=== PATIENT | female | born 1990 | race Two or more races ===

== ENCOUNTER 2023-01-19 19:06 | Inpatient (IN) | payer MEDICAID, OTHER ==
[~2023-01-19] VITALS: Ht 162.6 cm; Wt 71.0 kg
[2023-01-19] MEDS ORDERED: PANTOPRAZOLE 40 MG/10 ML VIAL INJ IV ONE (20:00)
[2023-01-19] MEDS ORDERED: PROCHLORPERAZINE EDISYLATE 5 MG/ML 2ML VIAL IV ONE (20:00)
[2023-01-19] MEDS ORDERED: HYDROmorphone HCL 2 MG/ML VL/or syr IV ONE (20:00)
[2023-01-19] MEDS ORDERED: SODIUM CHLORIDE 0.9% 1,000 ML IVB ONE (20:00)
[2023-01-19 20:51] LABS: Basophils # (auto) 0 10 ^3/uL (0-0.2); Basophils % (auto) 0.2 % (0.0-2.0); Eosinophils # (auto) 0 10 ^3/uL (0-0.8); Hematocrit 33.2 % (36.0-46.0); Hemoglobin 10.9 g/dL (12.2-16.2); Lymphocytes # (auto) 0.7 10 ^3/uL (0.4-5.4); Mean Corpuscular Hemoglobin 28.1 pg (28.0-32.0); Mean Corpuscular Hgb Conc. 32.8 g/dL (32.0-36.0); Mean Corpuscular Volume 85.8 fL (80.0-100.0); Monocytes # (auto) 0.4 10 ^3/uL (0-1.3); Monocytes % (auto) 4.2 % (0.0-12.0); Neutrophils # (auto) 8.7 10 ^3/uL (1.6-8.6); Neutrophils % (auto) 88.6 % (37.0-80.0); Red Blood Cells 3.87 10^6/uL (4.0-5.20); Red Cell Distribution Width 14.7 % (11.8-14.3); White Blood Cell 9.9 10^3/uL (4.4-10.8)
[2023-01-19 21:13] LABS: Alanine Aminotransferase 10 U/L (7-40); Alkaline Phosphatase 75 U/L (46-116); Anion Gap 10.2 (5-15); BUN/Creatinine Ratio 8.8 (10.0-20.0); Blood Urea Nitrogen 10 mg/dL (9-23); Calcium 9.3 mg/dL (8.5-10.1); Carbon Dioxide 23.8 mmol/L (20-30); Chloride 106 mmol/L (98-107); Glucose 163 mg/dL (74-106); Lipase 34 U/L (12-53); Potassium 3.5 mmol/L (3.5-5.1); Sodium 140 mmol/L (136-145)
[2023-01-19 21:14] LABS: Albumin 4.2 g/dL (3.2-4.8); Aspartate Aminotransferase 13 U/L (13-40); Bilirubin, Total 0.5 mg/dL (0.2-1.0); Total Protein 7.6 g/dL (5.7-8.2)
[2023-01-19 22:04] LABS: Urine Bacteria MANY /hpf (None Seen); Urine Blood TRACE /uL (Negative); Urine Clarity CLOUDY (Clear); Urine Color Yellow (Yellow); Urine Hyaline Cast MOD /lpf (0 - 2); Urine Mucus FEW (None Seen); Urine Protein, UAD 1+ (Negative); Urine Specific Gravity 1.015 (1.001-1.035); Urine Urobilinogen Normal (Negative); Urine WBC 698 /hpf (0 - 5); Urine WBC Clumps PRESENT /hpf (None Seen)
[2023-01-19] MEDS ORDERED: cefTRIAXone 1GM/50ML D5W 50 ML IV ONE (22:15)
[2023-01-19] MEDS ORDERED: ACETAMINOPHEN 325 MG TAB PO PRN (22:45)
[2023-01-19] MEDS ORDERED: SODIUM CHLORIDE 0.9% 1,000 ML IV SCH (22:45)
[2023-01-19 23:03] LABS: Amphetamine Screen, Urine Neg (NEGATIVE); Barbiturate Scree,Urine Neg (NEGATIVE); Benzodiazephine Screen, Urine Neg (NEGATIVE)
[2023-01-19 23:04] LABS: Cannabinoid Screen, Urine Pos (NEGATIVE); Cocaine Screen, Urine Neg (NEGATIVE); Opiate Scree,Urine Neg (NEGATIVE); Phencyclidine Screen, Urine Neg (NEGATIVE)
[2023-01-20] MEDS: SODIUM CHLORIDE 0.9% 1,000 ML IV SCH ×5 (00:23→23:22)
[2023-01-20] MEDS: ACETAMINOPHEN 325 MG TAB PO PRN ×2 (02:45→23:11)
[2023-01-20] MEDS: HYDROmorphone HCL 2 MG/ML VL/or syr IV PRN ×4 (04:14→20:40)
[2023-01-20] MEDS ORDERED: HYDROmorphone HCL 2 MG/ML VL/or syr IV SCH (06:00)
[2023-01-20 07:10] LABS: Basophils # (auto) 0 10 ^3/uL (0-0.2); Basophils % (auto) 0.2 % (0.0-2.0); Eosinophils # (auto) 0 10 ^3/uL (0-0.8); Eosinophils % (auto) 0.2 % (0.0-7.0); Hematocrit 33.2 % (36.0-46.0); Hemoglobin 10.8 g/dL (12.2-16.2); Lymphocytes # (auto) 1.2 10 ^3/uL (0.4-5.4); Lymphocytes % (auto) 10.1 % (10.0-50.0); Mean Corpuscular Hgb Conc. 32.7 g/dL (32.0-36.0); Mean Corpuscular Volume 85.7 fL (80.0-100.0); Monocytes # (auto) 0.8 10 ^3/uL (0-1.3); Monocytes % (auto) 7.4 % (0.0-12.0); Neutrophils # (auto) 9.4 10 ^3/uL (1.6-8.6); Neutrophils % (auto) 82.1 % (37.0-80.0); Red Blood Cells 3.87 10^6/uL (4.0-5.20); Red Cell Distribution Width 14.6 % (11.8-14.3); White Blood Cell 11.4 10^3/uL (4.4-10.8)
[2023-01-20 07:29] LABS: Alanine Aminotransferase 11 U/L (7-40); Alkaline Phosphatase 76 U/L (46-116); Anion Gap 10.4 (5-15); BUN/Creatinine Ratio 8.2 (10.0-20.0); Blood Urea Nitrogen 8 mg/dL (9-23); Carbon Dioxide 21.6 mmol/L (20-30); Chloride 104 mmol/L (98-107); Glucose 197 mg/dL (74-106); Potassium 3.7 mmol/L (3.5-5.1); Sodium 136 mmol/L (136-145)
[2023-01-20 07:30] LABS: Albumin 4.1 g/dL (3.2-4.8); Aspartate Aminotransferase 9 U/L (13-40); Bilirubin, Total 0.5 mg/dL (0.2-1.0); Total Protein 7.5 g/dL (5.7-8.2)
[2023-01-20 07:35] VITALS: PULSE 111; RESP 16; O2SAT 96
[2023-01-20 10:37] LABS: Magnesium 1.7 mg/dL (1.6-2.6)
[2023-01-20] MEDS: PANTOPRAZOLE 40 MG/10 ML VIAL INJ IV SCH (10:55)
[2023-01-20] MEDS: METOCLOPRAMIDE HCL 5MG/ml INJ 2ml VIAL IV PRN (10:59)
[2023-01-20] MEDS ORDERED: DICYCLOMINE HCL 10 MG CAP PO ONE (18:30)
[2023-01-20] MEDS ORDERED: INSU100I2 SC (19:04)
[2023-01-20] MEDS ORDERED: INSLANTI SC (19:04)
[2023-01-20 19:21] VITALS: TEMP 36.6
[2023-01-20 22:03] VITALS: BP 158/100; PULSE 110; RESP 21; TEMP 98.3; O2SAT 100
[2023-01-20] MEDS: SUCRALFATE 1 GM/10 ML ORAL SUSP PO SCH (22:54)
[2023-01-20] MEDS: cefTRIAXone 1GM/50ML D5W 50 ML IV SCH (22:55)
[2023-01-21] MEDS: HYDROmorphone HCL 2 MG/ML VL/or syr IV PRN ×6 (00:58→23:32)
[2023-01-21] MEDS ORDERED: KETOROLAC TROMETH 30 MG/ML 1ML VIAL IV ONE (02:30)
[2023-01-21 05:09] VITALS: BP 138/75; PULSE 110; RESP 20; TEMP 97.7; O2SAT 98
[2023-01-21] MEDS: SUCRALFATE 1 GM/10 ML ORAL SUSP PO SCH ×4 (05:31→21:58)
[2023-01-21] MEDS: METOCLOPRAMIDE HCL 5MG/ml INJ 2ml VIAL IV PRN (06:17)
[2023-01-21 07:30] VITALS: TEMP 36.5
[2023-01-21] MEDS: PANTOPRAZOLE 40 MG/10 ML VIAL INJ IV SCH (08:50)
[2023-01-21] MEDS: SODIUM CHLORIDE 0.9% 1,000 ML IV SCH ×4 (08:56→23:08)
[2023-01-21 09:00] VITALS: BP 131/92; PULSE 119; RESP 22; TEMP 98.8; O2SAT 99
[2023-01-21] MEDS ORDERED: ALPRAZolam 0.5 MG TAB PO ONE (11:00)
[2023-01-21 13:00] VITALS: BP 137/94; PULSE 104; RESP 20; TEMP 98.8; O2SAT 97
[2023-01-21] MEDS ORDERED: ALPRAZolam 0.5 MG TAB PO SCH (14:00)
[2023-01-21 16:54] VITALS: BP 142/62; PULSE 105; RESP 20; TEMP 98.3; O2SAT 96
[2023-01-21] MEDS ORDERED: DEXTROSE (50%) 50ML SYRG IV PRN (17:45)
[2023-01-21] MEDS: cefTRIAXone 1GM/50ML D5W 50 ML IV SCH (21:58)
[2023-01-21] MEDS: ALPRAZolam 0.5 MG TAB PO SCH (21:59)
[2023-01-21 22:00] VITALS: BP 135/90; PULSE 100; RESP 18; TEMP 98.3; O2SAT 100
[2023-01-21] MEDS: InsuLIN REG 1unit/0.01ml Soln (100units/ml) SC SCH (22:00)
[2023-01-21] MEDS: ACCU-CHEK COMFORT CURVE STRIP VI SCH (22:08)
[2023-01-22 05:00] VITALS: BP 116/69; PULSE 113; RESP 20; TEMP 98.3; O2SAT 98
[2023-01-22] MEDS: ALPRAZolam 0.5 MG TAB PO SCH ×3 (05:46→20:28)
[2023-01-22] MEDS: SUCRALFATE 1 GM/10 ML ORAL SUSP PO SCH ×4 (05:46→20:27)
[2023-01-22] MEDS: ACCU-CHEK COMFORT CURVE STRIP VI SCH ×4 (05:57→21:26)
[2023-01-22] MEDS: InsuLIN REG 1unit/0.01ml Soln (100units/ml) SC SCH ×4 (05:57→21:28)
[2023-01-22] MEDS: SODIUM CHLORIDE 0.9% 1,000 ML IV SCH ×2 (06:05→19:22)
[2023-01-22 08:00] VITALS: BP 162/104; PULSE 63; RESP 20; TEMP 97.6; O2SAT 97
[2023-01-22] MEDS: ACETAMINOPHEN 325 MG TAB PO PRN (08:14)
[2023-01-22] MEDS: HYDROmorphone HCL 2 MG/ML VL/or syr IV PRN ×4 (08:20→21:23)
[2023-01-22] MEDS: PANTOPRAZOLE 40 MG/10 ML VIAL INJ IV SCH (09:30)
[2023-01-22] MEDS: METOCLOPRAMIDE HCL 5MG/ml INJ 2ml VIAL IV PRN (11:21)
[2023-01-22 13:00] VITALS: BP 137/81; PULSE 119; RESP 22; TEMP 98.6; O2SAT 97
[2023-01-22 16:47] VITALS: BP 128/81; PULSE 102; RESP 16; TEMP 98.7; O2SAT 98
[2023-01-22] MEDS: cefTRIAXone 1GM/50ML D5W 50 ML IV SCH (20:15)
[2023-01-22 22:40] VITALS: BP 153/93; PULSE 110; RESP 18; TEMP 98.3; O2SAT 98
[2023-01-23] MEDS: HYDROmorphone HCL 2 MG/ML VL/or syr IV PRN ×5 (02:49→22:02)
[2023-01-23] MEDS: SUCRALFATE 1 GM/10 ML ORAL SUSP PO SCH ×4 (03:00→21:29)
[2023-01-23] MEDS: ALPRAZolam 0.5 MG TAB PO SCH ×3 (03:00→21:30)
[2023-01-23] MEDS: SODIUM CHLORIDE 0.9% 1,000 ML IV SCH ×3 (05:19→18:11)
[2023-01-23 05:35] VITALS: BP 125/84; PULSE 115; RESP 20; TEMP 97.9; O2SAT 98
[2023-01-23] MEDS: ACCU-CHEK COMFORT CURVE STRIP VI SCH ×4 (05:56→21:30)
[2023-01-23] MEDS: InsuLIN REG 1unit/0.01ml Soln (100units/ml) SC SCH ×4 (05:56→21:49)
[2023-01-23 06:31] LABS: INR 0.98 (0.9-1.15); Prothrombin Time 10.3 sec (9.3-11.8)
[2023-01-23] MEDS: METOCLOPRAMIDE HCL 5MG/ml INJ 2ml VIAL IV PRN ×2 (08:47→17:59)
[2023-01-23] MEDS: PANTOPRAZOLE 40 MG/10 ML VIAL INJ IV SCH ×3 (08:47→21:30)
[2023-01-23 09:00] VITALS: BP 112/64; PULSE 106; RESP 20; TEMP 97.9; O2SAT 96
[2023-01-23] MEDS ORDERED: fentaNYL CITRATE 100 MCG/2 ML VL ONE (11:40)
[2023-01-23] MEDS ORDERED: MIDAZOLAM HCL 2MG/2ML 2ml VIAL (1mg/ml) ONE (11:41)
[2023-01-23 12:01] VITALS: O2SAT 100
[2023-01-23] MEDS ORDERED: PROPOFOL 10 MG/ML 20 ML IV ONE (12:35)
[2023-01-23] MEDS: ONDANSETRON HCL 4 MG/2 ML VIAL IV PRN (13:40)
[2023-01-23 17:00] VITALS: BP 145/92; PULSE 112; RESP 16; TEMP 98.3; O2SAT 96
[2023-01-23 18:41] LABS: Urine Bacteria FEW /hpf (None Seen); Urine Blood Negative /uL (Negative); Urine Clarity HAZY (Clear); Urine Color Colorless (Yellow); Urine Mucus FEW (None Seen); Urine Protein, UAD TRACE (Negative); Urine Urobilinogen Normal (Negative); Urine WBC 215 /hpf (0 - 5); Urine WBC Clumps PRESENT /hpf (None Seen)
[2023-01-23 20:00] VITALS: PULSE 111; RESP 18
[2023-01-23] MEDS: cefTRIAXone 1GM/50ML D5W 50 ML IV SCH (21:30)
[2023-01-23 22:00] VITALS: BP 128/83; PULSE 111; RESP 16; TEMP 98.7; O2SAT 96
[2023-01-24] MEDS: METOCLOPRAMIDE HCL 5MG/ml INJ 2ml VIAL IV PRN ×2 (02:04→21:20)
[2023-01-24] MEDS: HYDROmorphone HCL 2 MG/ML VL/or syr IV PRN ×3 (02:05→11:14)
[2023-01-24] MEDS: SODIUM CHLORIDE 0.9% 1,000 ML IV SCH ×3 (04:40→21:21)
[2023-01-24 05:00] VITALS: BP 122/89; PULSE 107; RESP 16; TEMP 98.2; O2SAT 98
[2023-01-24] MEDS: ONDANSETRON HCL 4 MG/2 ML VIAL IV PRN (06:08)
[2023-01-24] MEDS: ALPRAZolam 0.5 MG TAB PO SCH ×3 (06:08→21:20)
[2023-01-24] MEDS: ACCU-CHEK COMFORT CURVE STRIP VI SCH ×4 (06:08→21:21)
[2023-01-24] MEDS: SUCRALFATE 1 GM/10 ML ORAL SUSP PO SCH ×4 (06:08→21:20)
[2023-01-24] MEDS: InsuLIN REG 1unit/0.01ml Soln (100units/ml) SC SCH ×4 (06:30→21:48)
[2023-01-24 07:26] LABS: Erythrocyte Sedimentation Rate 49 mm/hr (0-20)
[2023-01-24 08:00] VITALS: BP 116/87; PULSE 101; RESP 15; TEMP 98.4; O2SAT 97
[2023-01-24] MEDS: PANTOPRAZOLE 40 MG/10 ML VIAL INJ IV SCH ×2 (09:38→21:20)
[2023-01-24 13:00] VITALS: BP 142/92; PULSE 114; RESP 20; TEMP 98.3; O2SAT 100
[2023-01-24 17:00] VITALS: BP 147/102; PULSE 107; RESP 15; TEMP 98.5; O2SAT 100
[2023-01-24 20:00] VITALS: BP 135/93; PULSE 103; RESP 16; TEMP 97.6
[2023-01-24] MEDS: cefTRIAXone 1GM/50ML D5W 50 ML IV SCH (21:21)
[2023-01-24] MEDS: ACETAMINOPHEN 325 MG TAB PO PRN (21:21)
[2023-01-24 22:00] VITALS: BP 135/93; PULSE 103; RESP 16; TEMP 97.6; O2SAT 94
[2023-01-25 05:00] VITALS: BP 140/100; PULSE 108; RESP 16; TEMP 97.6; O2SAT 96
[2023-01-25] MEDS: SODIUM CHLORIDE 0.9% 1,000 ML IV SCH ×3 (05:40→22:20)
[2023-01-25] MEDS: ACCU-CHEK COMFORT CURVE STRIP VI SCH ×4 (06:22→23:30)
[2023-01-25] MEDS: SUCRALFATE 1 GM/10 ML ORAL SUSP PO SCH ×4 (06:22→22:44)
[2023-01-25] MEDS: ALPRAZolam 0.5 MG TAB PO SCH ×3 (06:22→22:44)
[2023-01-25] MEDS: ACETAMINOPHEN 325 MG TAB PO PRN ×2 (06:42→14:31)
[2023-01-25] MEDS: InsuLIN REG 1unit/0.01ml Soln (100units/ml) SC SCH ×4 (06:45→22:40)
[2023-01-25 08:00] VITALS: PULSE 102; RESP 18; O2SAT 97
[2023-01-25 09:00] VITALS: BP 123/89; PULSE 67; RESP 20; TEMP 98.9; O2SAT 96
[2023-01-25] MEDS: PANTOPRAZOLE 40 MG/10 ML VIAL INJ IV SCH ×2 (09:27→22:44)
[2023-01-25] MEDS ORDERED: SUCR1TAB22 OR (11:31)
[2023-01-25] MEDS ORDERED: PANT40T PO (11:31)
[2023-01-25] MEDS ORDERED: ZOFR4T PO (11:31)
[2023-01-25] MEDS ORDERED: METO-281 PO (11:31)
[2023-01-25] MEDS ORDERED: ERTAPENEM SOD INJ 1 GM in SODIUM CHL 0.9% 50 ML IV ONE (11:45)
[2023-01-25 13:00] VITALS: BP 139/86; PULSE 107; RESP 20; TEMP 98.4; O2SAT 94
[2023-01-25 20:00] VITALS: BP 136/83; PULSE 98; RESP 16; RESP 20; TEMP 98.3
[2023-01-25] MEDS: MEROPENEM 1GM IVPB 100 ML IV SCH (23:24)
[2023-01-26] MEDS ORDERED: diphenhdrAMINE HCL 50 MG/1 ML VL IV ONE (02:45)
[2023-01-26] MEDS ORDERED: ACETAMINOPHEN 325 MG TAB PO ONE (02:45)
[2023-01-26 05:04] VITALS: BP 105/69; PULSE 96; RESP 19; TEMP 97.7; O2SAT 98
[2023-01-26] MEDS: SODIUM CHLORIDE 0.9% 1,000 ML IV SCH ×2 (06:40→10:49)
[2023-01-26] MEDS: SUCRALFATE 1 GM/10 ML ORAL SUSP PO SCH ×3 (06:44→17:06)
[2023-01-26] MEDS: ALPRAZolam 0.5 MG TAB PO SCH ×2 (06:45→15:07)
[2023-01-26] MEDS: InsuLIN REG 1unit/0.01ml Soln (100units/ml) SC SCH ×3 (06:53→17:12)
[2023-01-26 08:00] VITALS: BP 118/79; PULSE 59; RESP 20; TEMP 98.6; O2SAT 97
[2023-01-26] MEDS: ACCU-CHEK COMFORT CURVE STRIP VI SCH ×3 (08:00→17:06)
[2023-01-26] MEDS: MEROPENEM 1GM IVPB 100 ML IV SCH (08:06)
[2023-01-26 08:30] VITALS: PULSE 117; RESP 22; O2SAT 98
[2023-01-26] MEDS ORDERED: ERTAPENEM SOD INJ 1 GM in SODIUM CHL 0.9% 50 ML IV SCH (10:00)
[2023-01-26] MEDS: PANTOPRAZOLE 40 MG/10 ML VIAL INJ IV SCH (10:49)
[2023-01-26] MEDS: ACETAMINOPHEN 325 MG TAB PO PRN (11:10)
[2023-01-26] MEDS ORDERED: diphenhdrAMINE HCL 50 MG/1 ML VL IV PRN (11:30)
[2023-01-26] MEDS ORDERED: methylPREDNISolone SOD SUCC 40 MG/ML VL IV PRN (11:30)
[2023-01-26] MEDS ORDERED: AMIKACIN 1,000 MG in D5W 5% 100 ML IV ONE (12:00)
[2023-01-26 12:14] LABS: Basophils # (auto) 0 10 ^3/uL (0-0.2); Basophils % (auto) 0.5 % (0.0-2.0); Eosinophils # (auto) 0.2 10 ^3/uL (0-0.8); Eosinophils % (auto) 3.1 % (0.0-7.0); Hematocrit 35.1 % (36.0-46.0); Hemoglobin 11.6 g/dL (12.2-16.2); Lymphocytes # (auto) 1.1 10 ^3/uL (0.4-5.4); Mean Corpuscular Hemoglobin 27.9 pg (28.0-32.0); Mean Corpuscular Hgb Conc. 33.1 g/dL (32.0-36.0); Mean Corpuscular Volume 84.2 fL (80.0-100.0); Monocytes # (auto) 0.4 10 ^3/uL (0-1.3); Monocytes % (auto) 6.2 % (0.0-12.0); Neutrophils % (auto) 70.2 % (37.0-80.0); Nucleated Red Blood Cells % 0.1 %; Red Blood Cells 4.17 10^6/uL (4.0-5.20); Red Cell Distribution Width 14.9 % (11.8-14.3); White Blood Cell 5.7 10^3/uL (4.4-10.8)
[2023-01-26 12:30] LABS: INR 1.03 (0.9-1.15); Prothrombin Time 10.8 sec (9.3-11.8)
[2023-01-26 12:41] LABS: Albumin 3.8 g/dL (3.2-4.8); Alkaline Phosphatase 74 U/L (46-116); Anion Gap 8.5 (5-15); Aspartate Aminotransferase 9 U/L (13-40); Calcium 9.1 mg/dL (8.5-10.1); Carbon Dioxide 24.5 mmol/L (20-30); Chloride 102 mmol/L (98-107); Glucose 242 mg/dL (74-106); Potassium 3.2 mmol/L (3.5-5.1); Sodium 135 mmol/L (136-145)
[2023-01-26 12:42] LABS: Bilirubin, Total 0.3 mg/dL (0.2-1.0); Total Protein 6.9 g/dL (5.7-8.2)
[2023-01-26 12:47] LABS: Alanine Aminotransferase 9 U/L (7-40); BUN/Creatinine Ratio 5.2 (10.0-20.0); Blood Urea Nitrogen < 5 mg/dL (9-23)
[2023-01-26 13:00] VITALS: BP 143/95; PULSE 99; RESP 22; TEMP 97.5; O2SAT 98
[2023-01-26] MEDS: POTASSIUM CHL 20MEQ/100ML 100 ML IV SCH ×2 (15:07→17:00)
[2023-01-26] MEDS ORDERED: DICYCLOMINE HCL 10 MG CAP PO PRN (15:30)
[2023-01-26 17:00] VITALS: BP 118/84; PULSE 107; RESP 20; TEMP 98.7; O2SAT 96
[2023-01-26] MEDS ORDERED: KETOROLAC TROMETH 30 MG/ML 1ML VIAL IV PRN (17:00)
[2023-01-27] MEDS ORDERED: AMIKACIN 1,000 MG in D5W 5% 100 ML IV SCH (10:00)
== END 2023-01-26 18:57 | disposition left against medical advice (07) | DRG 720 ==
LOC: ER 19:06 → OVERFLOW 22:35 → WEST WING 01-20 18:21
PROVIDERS: ADMIT Nurse Practitioner Family; ATTEND Family Medicine
PROC: 0DB98ZX Excision of Duodenum, Via Natural or Artificial Opening Endoscopic, Diagnostic (ICD-10-PCS; 2023-01-23)
PROC: 0DB68ZX Excision of Stomach, Via Natural or Artificial Opening Endoscopic, Diagnostic (ICD-10-PCS; 2023-01-23)
PROC: 0DB38ZX Excision of Lower Esophagus, Via Natural or Artificial Opening Endoscopic, Diagnostic (ICD-10-PCS; 2023-01-23)
PROC: 05HC33Z Insertion of Infusion Device into Left Basilic Vein, Percutaneous Approach (ICD-10-PCS; principal; 2023-01-26)
DX: A41.51 Sepsis due to Escherichia coli [E. coli] (principal); K31.3 Pylorospasm, not elsewhere classified; K29.00 Acute gastritis without bleeding; K31.84 Gastroparesis; N39.0 Urinary tract infection, site not specified; R73.9 Hyperglycemia, unspecified; K44.9 Diaphragmatic hernia without obstruction or gangrene; K29.70 Gastritis, unspecified, without bleeding; Z53.29 Procedure and treatment not carried out because of patient's decision for other reasons; B96.20 Unspecified Escherichia coli [E. coli] as the cause of diseases classified elsewhere; F12.10 Cannabis abuse, uncomplicated; K21.9 Gastro-esophageal reflux disease without esophagitis; Z16.12 Extended spectrum beta lactamase (ESBL) resistance; Z83.3 Family history of diabetes mellitus; Z90.49 Acquired absence of other specified parts of digestive tract; Z87.440 Personal history of urinary (tract) infections
CPT/HCPCS: 36415; 74176; 80053; 80307; 81001; 81025; 82728; 82962; 83036; 83690; 83735; 84100; 84443; 84484; 85025; 85610; 85652; 85730; 86038; 86141; 86850; 86900; 86901; 87040; 87081; 87086; 87088; 87186; 96361; 96374; 96375; C9113; G0378; J0696; J1815; J1885; J2185; J2250; J2405; J2704; J3480; J7060

== ENCOUNTER 2024-07-03 16:54 | Inpatient (IN) | payer MEDICAID ==
[~2024-07-03] VITALS: Ht 162.6 cm; Wt 72.7 kg
[~2024-07-03 16:54] MED LIST: INSLANTI SC; INSU100I2 SC; METO-281 PO; PANT40T PO; SUCR1TAB31 OR; ZOFR4T PO
--- NOTE | 2024-07-03 17:47 | ED.PDOC ---
GI ASSESSMENT HPI Comments 34y F who presents to the ED for chief complaint of abdominal pain. Pt states she has been having epigastric abdominal pain for the past 3 days. Pt states the pain is 10/10, achy in nature, constant, radiating diffuse across her abdomen, with no associated exacerbating or relieving factors. pt has associated nausea, vomiting and diarrhea but otherwise denies fever, cough, chills, dysuria, hematuria, or hematemesis. Pt states she is type 1 diabetic and accu check in ED is 292. Pt in the ED, is noted to be in distress and is unable to sit still. Pt otherwise denies any other symptoms at this time. Chief Complaint: Abdominal Pain Time Seen by MD: 17:43 Primary Care Provider: "IERUTH" Reviewed Notes: Nurses Notes, Medications Allergies: Coded Allergies: Meropenem (Verified Allergy, Unknown, hives, 01/26/23) Home Meds Active Scripts Sucralfate (CARAFATE) 1 Gm Tab, 1 GM OR QID, #120 TAB Prov:OSKAR CAPELLAN MD 01/25/23 Pantoprazole Sodium Sesquihydr (Pantoprazole Sodium) 40 Mg Tab, 40 MG PO DAILY, #30 TAB Prov:OSKAR CAPELLAN MD 01/25/23 Metoclopramide Hcl (Reglan) 10 Mg Tab, 10 MG PO DAILY, #30 TAB Prov:OSKAR CAPELLAN MD 01/25/23 Ondansetron Odt 4MG Tab (ZOFRAN PO) 4 Mg Tb, 4 MG PO Q6HR PRN, #30 TAB ODT TAB-DISSOLVE IN MOUTH, THEN SWALLOW Prov:OSKAR CAPELLAN MD 01/25/23 Reported Medications Insulin Lispro (Human) (Humalog) 100 Unit/Ml Inj, 100 UNIT SC for Diabetes, INJ 01/20/23 Insulin Glargine (Lantus) 100 Unit/Ml Inj, 100 UNIT SC for Diabetes, INJ 01/20/23 Information Source: Patient Mode of Arrival: Ambulatory Brought in by: self Timing: Days Duration: Since onset Prehospital treatment: None Quality: Aching Vomitus: Soft Stool: Loose Severity: Moderate Recent: None Recent Hx of: None Pain Location: Diffuse, Epigastric Modifying Factors: Nothing Associated sign and symptoms: Nausea, Vomiting, Diarrhea Past Medical History PAST MEDICAL HISTORY: DM, UTI'S Past Medical History (Other): gastroparesis Surgical History: Cholecystectomy SENIOR FACILITIES MANAGER History: Denies all SENIOR FACILITIES MANAGER Hx Family History Family History: Family hx of DM Social History Smoker: Non-Smoker Alcohol: Denies ETOH Use Drugs: Denies Drug Use Lives In: Home Constitutional: denies: chills, diaphoresis, fatigue, fever, malaise, sweats, weakness, others EENTM: denies: blurred vision, double vision, ear bleeding, ear discharge, ear drainage, ear pain, ear ringing, eye pain, eye redness, hearing loss, mouth pain, mouth swelling, nasal discharge, nose bleeding, nose congestion, nose pain, photophobia, tearing, throat pain, throat swelling, voice changes, others Respiratory: denies: cough, hemoptysis, orthopnea, SOB at rest, shortness of breath, SOB with excertion, stridor, wheezing, others Cardiovascular: denies: chest pain, dizzy spells, diaphoresis, Dyspnea on exertion, edema, irregular heart beat, left arm pain, lightheadedness, palpitations, PND, syncope, others Gastrointestinal: reports: abdominal pain, diarrhea, nausea, vomiting; denies: abdomen distended, blood streaked bowels, constipated, dysphagia, difficulty swallowing, hematemesis, melena, poor appetite, poor fluid intake, rectal bleeding, rectal pain, others Genitourinary: denies: abnormal vagina bleeding, burning, dyspareunia, dysuria, flank pain, frequency, hematuria, incontinence, pain, , vagina discharge, urgency, others Neurological: denies: dizziness, fainting, headache, left sided numbness, left sided weakness, numbness, paresthesia, pre-existing deficit, right sided numbness, right sided weakness, seizure, speech problems, tingling, tremors, weakness, others Musculoskeletal: denies: back pain, gout, joint pain, joint swelling, muscle pain, muscle stiffness, neck pain, others Integumetry: denies: bruises, change in color, change in hair/nails, dryness, laceration, lesions, lumps, rash, wounds, others Allergic/Immunocompromised: denies: Difficulty Healing, Frequent Infections, Hives, Itching, others Hematologic/Lymphatic: denies: anemia, blood clots, easy bleeding, easy bruising, swollen glands, others Endocrine: denies: excessive hunger, excessive sweating, excessive thirst, excessive urination, flushing, intolerance to cold, intolerance to heat, unexplained weight gain, unexplained weight loss, others Psychiatric: denies: anxiety, bipolar disorder, depression, hopeless, panic disorder, schizophrenia, sleepless, suicidal, others All Other Systems: Reviewed and Negative Physical Exam General Appearance: Moderate Distress, Other (Extreme anxiety) HEENT: Normal ENT Inspection, Pharynx Normal, TMs Normal Neck: Full Range of Motion, Non-Tender, Normal, Normal Inspection Respiratory: Chest Non-Tender, Lungs Clear, No Accessory Muscle Use, No Respiratory Distress, Normal Breath Sounds Cardiovascular: No Edema, No JVD, No Murmur, No Gallop, Normal Peripheral Pulses, Regular Rate/Rhythm Breast Exam: Deferred Gastrointestinal: Epigastric, No Organomegaly, No Pulsatile Mass, Normal Bowel Sounds, Soft, Tenderness Genitalia: Deferred Pelvic: Deferred Rectal: Deferred Extremities: No calf tenderness, Normal capillary refill, No pedal edema Musculoskeletal : Apperance: Normal Neurologic: Alert, flow worker II-XII nml as Tested, Motor Weakness, Normal Affect, Normal Mood, No Sensory Deficits Cerebellar Function: Normal Reflexes: Normal Skin: Dry, Normal Color, Warm Lymphatic: No Adenopathy Was a procedure done? Was a procedure done?: No GI differential Dx Differential Diagnosis: Gastritis/PUD, Gastroenteritis, Pancreatitis, UTI, Dehydration, Diabetes/ DKA, Electrolyte Imbalance Other Differential Diagnosis diabetic gastroparesis X-Ray, Labs, Meds, VS Vital Signs Date Time Temp Pulse Resp B/P (MAP) Pulse Ox O2 Delivery O2 Flow Rate FiO2 07/03/24 18:28 95 20 156/84 07/03/24 18:17 95 20 96 Room Air* 0 21 07/03/24 18:17 95 20 156/84 (108) 96 07/03/24 17:33 98.4 91 25 113/93 (100) 96 Lab Test 07/03/24 17:54 Range/Units White Blood Count 9.3 4.4-10.8 10^3/uL Red Blood Count 4.05 4.0-5.20 10^6/uL Hemoglobin 11.5 L 12.2-16.2 g/dL Hematocrit 34.9 L 36.0-46.0 % Mean Corpuscular Volume 86.2 80.0-100.0 fL Mean Corpuscular Hemoglobin 28.4 28.0-32.0 pg Mean Corpuscular Hemoglobin Concent 32.9 32.0-36.0 g/dL Red Cell Distribution Width 15.2 H 11.8-14.3 % Platelet Count 218 140-450 10^3/uL Mean Platelet Volume 10.7 6.9-10.8 fL Neutrophils (%) (Auto) 90.6 H 37.0-80.0 % Lymphocytes (%) (Auto) 5.8 L 10.0-50.0 % Monocytes (%) (Auto) 3.2 0.0-12.0 % Eosinophils (%) (Auto) 0.1 0.0-7.0 % Basophils (%) (Auto) 0.3 0.0-2.0 % Neutrophils # (Auto) 8.5 1.6-8.6 10 ^3/uL Lymphocytes # (Auto) 0.5 0.4-5.4 10 ^3/uL Monocytes # (Auto) 0.3 0-1.3 10 ^3/uL Eosinophils # (Auto) 0 0-0.8 10 ^3/uL Basophils # (Auto) 0 0-0.2 10 ^3/uL Nucleated Red Blood Cells 0.0 % Sodium Level 139 136-145 mmol/L Potassium Level 4.2 3.5-5.1 mmol/L Chloride Level 105 98-107 mmol/L Carbon Dioxide Level 21 20-31 mmol/L Anion Gap 13 5-15 Blood Urea Nitrogen 26 H 9-23 mg/dL Creatinine 1.41 H 0.550-1.02 mg/dL Glomerular Filtration Rate Calc 50 >90 mL/min BUN/Creatinine Ratio 18.4 10.0-20.0 Serum Glucose 322 H 74-106 mg/dL Calcium Level 10.2 8.7-10.4 mg/dL Total Bilirubin 0.5 0.2-1.0 mg/dL Aspartate Amino Transferase (AST) 25 13-40 U/L Alanine Aminotransferase (ALT) 41 H 7-40 U/L Alkaline Phosphatase 83 46-116 U/L Total Protein 7.8 5.7-8.2 g/dL Albumin 4.9 H 3.2-4.8 g/dL Lipase 34 12-53 U/L Beta-Hydroxybutyric Acid 2.429 H < 0.4 mmol/L Current Medications Medications (Trade) Dose Ordered Sig/Pio Route Start Time Stop Time Status Last Admin Sodium Chloride 1,000 ml @ 1,000 mls/hr Q1H ONCE IVB 07/03/24 17:15 07/03/24 18:14 DC 07/03/24 18:16 Morphine Sulfate 4 mg ONCE ONCE IV 07/03/24 17:15 07/03/24 17:16 DC 07/03/24 18:28 Prochlorperazine Edisylate (Compazine Inj) 10 mg ONCE ONCE IV 07/03/24 17:15 07/03/24 17:16 DC 07/03/24 18:29 Pantoprazole Sodium (Protonix) 40 mg ONCE ONCE IV 07/03/24 17:15 07/03/24 17:16 DC 07/03/24 18:27 The patient had an IV Hep-Lock established. The patient was given a 1 L bolus of normal saline The patient was given morphine 4 mg IV push for the pain The patient was given Compazine 10 mg IV push The patient was given Protonix 40 mg IV push The beta hydroxybutyric acid is 2.43 which is elevated The liver enzymes are within normal limits. The CBC is within normal limits The urine test is pending The patient was being admitted at this time. Images Reviewed?: Images reviewed and evaluated by me Time of 1ST Reevaluation: 18:15 Reevaluation 1ST: Unchanged Time of 2ND Reevaluation: 20:43 Reevaluation 2ND: Unchanged Patient Education/Counseling: Diagnosis, Treatment, Prognosis Family Education/Counseling: Prognosis, No Family Present Additional Information - I reviewed the following notes from patient's past medical encounters: - The following tests were ordered, and results were reviewed by me: (Labs, X- Ray, EKG): cbc, cmp, lipase, ua, urine , drug screen acetone level - Additional information was gathered from interviewing the following independent Historian: (Family, Other Providers, EMT): none - I reviewed and agreed with the following test results read by other provider: none - I discussed treatments and results with medical personnel and: (consultants, family): none Departure 1 Departure Time of Disposition: 20:42 Impression: Primary Impression: Gastroparesis Additional Impressions: Intractable abdominal pain Intractable vomiting Disposition: ADMITTED INPATIENT Admit to: Med Surg Condition: Fair Critical Care Note Critical Care Time?: No Stability Stability form required: Yes Unstable for transfer: ED Physician Assesment (Clinical assesment) Heart Score Heart Score: Heart Score Response (Comments) Value History N/A 0 EKG N/A 0 Age N/A 0 Risk Factors N/A 0 Troponin N/A 0 Total 0 I personally scribed for HARESH WU MD ([email or web address]) on 07/03/24 at 17:47. Electronically submitted by Salinas Renteria ([facility]). HARESH WU MD Jul 03, 2024 17:47
[2024-07-03] MEDS: SODIUM CHLORIDE 0.9% 1,000 ML IVB ONE (18:16)
[2024-07-03 18:17] VITALS: PULSE 95; RESP 20; O2SAT 96
[2024-07-03 18:21] LABS: Basophils # (auto) 0 10 ^3/uL (0-0.2); Basophils % (auto) 0.3 % (0.0-2.0); Eosinophils # (auto) 0 10 ^3/uL (0-0.8); Eosinophils % (auto) 0.1 % (0.0-7.0); Hematocrit 34.9 % (36.0-46.0); Hemoglobin 11.5 g/dL (12.2-16.2); Lymphocytes # (auto) 0.5 10 ^3/uL (0.4-5.4); Lymphocytes % (auto) 5.8 % (10.0-50.0); Mean Corpuscular Hemoglobin 28.4 pg (28.0-32.0); Mean Corpuscular Hgb Conc. 32.9 g/dL (32.0-36.0); Mean Corpuscular Volume 86.2 fL (80.0-100.0); Monocytes # (auto) 0.3 10 ^3/uL (0-1.3); Monocytes % (auto) 3.2 % (0.0-12.0); Neutrophils # (auto) 8.5 10 ^3/uL (1.6-8.6); Neutrophils % (auto) 90.6 % (37.0-80.0); Platelet Count (auto) 218 10^3/uL (140-450); Red Blood Cells 4.05 10^6/uL (4.0-5.20); Red Cell Distribution Width 15.2 % (11.8-14.3); White Blood Cell 9.3 10^3/uL (4.4-10.8)
[2024-07-03] MEDS: PANTOPRAZOLE 40 MG/10 ML VIAL INJ IV ONE (18:27)
[2024-07-03] MEDS: MORPHINE SULFATE 4 MG/ML SYR/VIAL IV ONE (18:28)
[2024-07-03 18:29] LABS: Alkaline Phosphatase 83 U/L (46-116); Anion Gap 13 (5-15); Aspartate Aminotransferase 25 U/L (13-40); BUN/Creatinine Ratio 18.4 (10.0-20.0); Calcium 10.2 mg/dL (8.7-10.4); Carbon Dioxide 21 mmol/L (20-31); Chloride 105 mmol/L (98-107); Lipase 34 U/L (12-53); Potassium 4.2 mmol/L (3.5-5.1); Sodium 139 mmol/L (136-145)
[2024-07-03] MEDS: PROCHLORPERAZINE EDISYLATE 5 MG/ML 2ML VIAL IV ONE (18:29)
[2024-07-03 18:30] LABS: Bilirubin, Total 0.5 mg/dL (0.2-1.0); Total Protein 7.8 g/dL (5.7-8.2)
[2024-07-03 18:43] LABS: Alanine Aminotransferase 41 U/L (7-40); Albumin 4.9 g/dL (3.2-4.8); Blood Urea Nitrogen 26 mg/dL (9-23); Glucose 322 mg/dL (74-106)
[2024-07-03] MEDS: SODIUM CHLORIDE 0.9% 1,000 ML IV ONE (20:30)
[2024-07-03] MEDS ORDERED: DEXTROSE (50%) 50ML SYRG IV PRN ×2 (20:45→21:00)
--- NOTE | 2024-07-03 20:54 | DVHHPRES ---
History of Present Illness Resident Creating Document: DELL GOULD RESIDENT Reason for Visit: ABDOMINAL PAIN History of Present Illness A 34y with past medical history diabetes type 1 and gastroparesis who came to the ED for epigastric abdominal pain. Patient stated that she is having the pain for about 2 weeks but it got worse today the reason that she came, patient also states nausea and vomit. Patient states that this pain happened before and she believes that is related to her gastroparesis. Home medication Lantus 15 units lispro 8 units Endocrine: Diabetes Past Surgical History: Cholecystectomy Family History: None Smoke: No ALCOHOL: none Drugs: None Lives: with Family Review of Systems Constitutional: No: Fever, Chills, Sweats, Weakness, Malaise, Other Eyes: No: Pain, Vision change, Conjunctivae inflammation, Eyelid inflammation, Other, Redness ENT: No: Ear pain, Ear discharge, Nose pain, Nose discharge, Nose congestion, Mouth pain, Mouth swelling, Throat pain, Throat swelling, Other Respiratory: No: Cough, Dry, Shortness of breath, SOB with excertion, Wheezing, Hemoptysis, Pleuritic Pain, Sputum, Wheezing, Other Cardiovascular: No: Chest Pain, Palpitations, Orthopnea, Paroxysmal Noc. Dyspnea, Edema, Lt Headedness, Other Gastrointestinal: No: Nausea, Vomiting, Abdominal Pain, Diarrhea, Constipation, Melena, Hematochezia, Other Genitourinary: No Dysuria, No Frequency, No Incontinence, No Hematuria, No Retention, No Other Musculoskeletal: No: other, neck pain, shoulder pain, arm pain, back pain, hand pain, leg pain, foot pain Skin: No: Rash, Lesions, Jaundice, Bruising, Other Allergies: Coded Allergies: Meropenem (Verified Allergy, Unknown, hives, 01/26/23) Medications Current Medications Medications Dose Ordered Sig/Pio Route Start Time Stop Time Status Last Admin Dose Admin Diagnostic Test (Pha) 1 strip Q6HR 07/04/24 00:00 UNV Insulin Human Regular Q6HR SC 07/04/24 00:00 UNV Dextrose 50 ml UD PRN IV 07/03/24 20:45 UNV Exam Vital Signs Vital Signs Date Time Temp Pulse Resp B/P (MAP) Pulse Ox O2 Delivery O2 Flow Rate FiO2 07/03/24 18:28 95 20 156/84 07/03/24 18:17 96 Room Air* 0 21 2/12/25 17:33 98.4 General Appearance: Alert, Oriented X3, Cooperative, mild distress HEENT: Atraumatic, PERRLA, EOMI, Other (Dry mucous ) Respiratory: Clear to auscultation Cardiovascular: Regular rate, Normal S1, Normal S2 Abdominal: Normal bowel sounds, Other (Tender in the epigastric area) Extremities: No clubbing, No cyanosis, No edema Skin: No rashes, No breakdown, No significant lesion Neuro: Normal gait, Normal speech, Strength at 5/5 X4 ext Psych/Mental Status: Mental status NL, Mood NL, Other Labs/Xrays Labs Test 07/03/24 17:54 Range/Units White Blood Count 9.3 4.4-10.8 10^3/uL Red Blood Count 4.05 4.0-5.20 10^6/uL Hemoglobin 11.5 L 12.2-16.2 g/dL Hematocrit 34.9 L 36.0-46.0 % Mean Corpuscular Volume 86.2 80.0-100.0 fL Mean Corpuscular Hemoglobin 28.4 28.0-32.0 pg Mean Corpuscular Hemoglobin Concent 32.9 32.0-36.0 g/dL Red Cell Distribution Width 15.2 H 11.8-14.3 % Platelet Count 218 140-450 10^3/uL Mean Platelet Volume 10.7 6.9-10.8 fL Neutrophils (%) (Auto) 90.6 H 37.0-80.0 % Lymphocytes (%) (Auto) 5.8 L 10.0-50.0 % Monocytes (%) (Auto) 3.2 0.0-12.0 % Eosinophils (%) (Auto) 0.1 0.0-7.0 % Basophils (%) (Auto) 0.3 0.0-2.0 % Neutrophils # (Auto) 8.5 1.6-8.6 10 ^3/uL Lymphocytes # (Auto) 0.5 0.4-5.4 10 ^3/uL Monocytes # (Auto) 0.3 0-1.3 10 ^3/uL Eosinophils # (Auto) 0 0-0.8 10 ^3/uL Basophils # (Auto) 0 0-0.2 10 ^3/uL Nucleated Red Blood Cells 0.0 % Sodium Level 139 136-145 mmol/L Potassium Level 4.2 3.5-5.1 mmol/L Chloride Level 105 98-107 mmol/L Carbon Dioxide Level 21 20-31 mmol/L Anion Gap 13 5-15 Blood Urea Nitrogen 26 H 9-23 mg/dL Creatinine 1.41 H 0.550-1.02 mg/dL Glomerular Filtration Rate Calc 50 >90 mL/min BUN/Creatinine Ratio 18.4 10.0-20.0 Serum Glucose 322 H 74-106 mg/dL Calcium Level 10.2 8.7-10.4 mg/dL Total Bilirubin 0.5 0.2-1.0 mg/dL Aspartate Amino Transferase (AST) 25 13-40 U/L Alanine Aminotransferase (ALT) 41 H 7-40 U/L Alkaline Phosphatase 83 46-116 U/L Total Protein 7.8 5.7-8.2 g/dL Albumin 4.9 H 3.2-4.8 g/dL Lipase 34 12-53 U/L Beta-Hydroxybutyric Acid 2.429 H < 0.4 mmol/L Assessment/Plan Assessment/Plan #Intractable abdominal pain #DM type 1 #Gastroparesis Admit to med surg NS bolus 1 L continue 100 cc/hour Protonix 40 b.i.d. Metoclopramide Lantus 15 units Moderate Insulin sliding scale CT abdomen without contrast and chest x-ray ordered Pending UDS A1c test TSH urinalysis, urine culture Case discussed with Dr. Enriquez Time spent of care 23 minutes Plan discussed with: Patient, Other (rn) My Orders Orders - DELL GOULD RESIDENT Procedure Category Date Status Time Sodium Chloride 0.9% PHA 07/03/24 Logged 20:30 Sodium Chloride 0.9% PHA 07/03/24 Logged 20:30 Metoclopramide PHA 07/03/24 Logged Injection (Reglan 20:30 Pantoprazole PHA 07/03/24 Logged (Protonix) 22:00 Abdomen Complete US 07/03/24 Logged Sonogram 20:27 Admit ADMIT 07/03/24 Transmitted 20:33 Ondansetron Hcl PHA 07/03/24 Logged (Zofran) 20:45 Urine Bacterial URBAN 07/03/24 Logged Culture 20:35 Thyroid Stimulating LAB 07/03/24 Logged Hormone 20:35 Hemoglobin A1c LAB 07/03/24 Logged 20:35 Glucose Blood PHA 07/04/24 Logged (Accu-Chek Comfort 00:00 Insulin R (Human) PHA 07/04/24 Logged (Insulin R) 00:00 Dextrose 50% Syringe PHA 07/03/24 Logged 20:45 Date of Service: Jul 03, 2024 Billing Provider: CRISS ENRIQUEZ MD Common Visit Codes: [id number] INP/OBS CARE (HIGH) DELL GOULD RESIDENT Jul 03, 2024 20:54 CRISS ENRIQUEZ MD Jul 05, 2024 00:30
--- NOTE | 2024-07-03 21:04 | DVH ---
CHEST RADIOGRAPH Indication: dyspnea Technique: Single frontal view of the chest was obtained COMPARISON: None FINDINGS: Lines and Tubes: None Lungs: Mild congestion Pleura: No effusion. No pneumothorax. Cardiomediastinal contours: Unremarkable Bones: Unremarkable IMPRESSION: Mild congestion.
--- NOTE | 2024-07-03 21:52 | DVH ---
CLINICAL HISTORY: abdominal pain TECHNIQUE: CT of the abdomen and pelvis was performed without intravenous contrast. This exam was per formed according to our departmental dose optimization program. Up-to-date CT equipment and radiation dose reduction techniques are utilized as appropriate. COMPARISON: CT CT AB PEL WO CON-NO ORAL OR IV on DOS: 01/22/23, report from CT abdomen and pelvis dated 07/06/2022 FINDINGS: Lower Thorax: Linear scarring in the right middle lobe. Lung bases otherwise clear. Normal-sized hea rt. Liver and Biliary system: Prior cholecystectomy, otherwise unremarkable. Spleen: Unremarkable. Adrenal Glands and Kidneys: Unremarkable. Pancreas and Retroperitoneum: Grossly normal pancreas. Mildly prominent retroperitoneal lymph nodes. Aorta and Major Vessels: Aortoiliac vessels are normal caliber containing trace calcified atheroscler otic plaque. Bowel, Mesentery and Peritoneal space: Small and large bowel loops are normal in caliber. Normal appe ndix. No free air or fluid collection. Pelvis: Grossly normal ovaries. No pelvic lymphadenopathy. Urinary bladder is mildly distended. A pro minent bulge in the posterior left uterine body unchanged likely a fibroid. Abdominal wall and Osseous Structures: Linear areas of scarring overlying the bilateral gluteus maxim us muscles. Small fat containing umbilical hernia. No destructive osseous lesion. IMPRESSION: 1. No noncontrast evidence of acute abnormality. 2. Prominent bulge in the posterior left uterine body is unchanged and likely a fibroid.
[2024-07-03 23:31] LABS: Urine Bacteria None Seen /hpf (None Seen)
[2024-07-03 23:58] LABS: Opiate Scree,Urine Neg (NEGATIVE)
[2024-07-03 23:59] LABS: Amphetamine Screen, Urine Neg (NEGATIVE); Barbiturate Scree,Urine Neg (NEGATIVE); Benzodiazephine Screen, Urine Neg (NEGATIVE); Cannabinoid Screen, Urine Pos (NEGATIVE); Cocaine Screen, Urine Neg (NEGATIVE); Phencyclidine Screen, Urine Neg (NEGATIVE)
[2024-07-04] MEDS ORDERED: InsuLIN REG 1unit/0.01ml Soln (100units/ml) SC SCH
[2024-07-04] MEDS ORDERED: ACCU-CHEK COMFORT CURVE STRIP VI SCH
[2024-07-04 00:16] LABS: Urine Blood Negative /uL (Negative); Urine Clarity Clear (Clear); Urine Color Colorless (Yellow); Urine Protein, UAD Negative (Negative); Urine Specific Gravity 1.017 (1.001-1.035); Urine Squamous Epithelial Cell FEW /hpf (<5); Urine Urobilinogen Normal (Negative); Urine WBC < 1 /HPF (0-5); Urine pH 6.5 (5.0-9.0)
[2024-07-04] MEDS: INSULIN LANTUS (GLARGINE) 1 /0.01ml (100units/ml) SC SCH ×3 (01:31→22:52)
[2024-07-04] MEDS: ACCU-CHEK COMFORT CURVE STRIP VI SCH (01:31)
[2024-07-04] MEDS: ONDANSETRON HCL 4 MG/2 ML VIAL IV ONE (01:37)
[2024-07-04] MEDS: PANTOPRAZOLE 40 MG/10 ML VIAL INJ IV ONE (01:37)
[2024-07-04] MEDS: MORPHINE SULFATE INJ 2 MG/ml SYRG IV PRN (01:37)
[2024-07-04] MEDS: InsuLIN REG 1unit/0.01ml Soln (100units/ml) SC SCH (01:38)
[2024-07-04] MEDS: SODIUM CHLORIDE 0.9% 2,000 ML IV ONE (01:39)
[2024-07-04] MEDS: METOCLOPRAMIDE HCL 5MG/ml INJ 2ml VIAL IV ONE ×2 (03:54→13:38)
[2024-07-04] MEDS: METOCLOPRAMIDE HCL 5MG/ml INJ 2ml VIAL IV SCH (06:00)
[2024-07-04] MEDS: D5W/SOD CHLO 0.9% 1,000 ML IV SCH (08:15)
[2024-07-04 08:43] LABS: Basophils # (auto) 0 10 ^3/uL (0-0.2); Basophils % (auto) 0.3 % (0.0-2.0); Eosinophils # (auto) 0 10 ^3/uL (0-0.8); Hematocrit 34.1 % (36.0-46.0); Hemoglobin 11.2 g/dL (12.2-16.2); Lymphocytes # (auto) 0.8 10 ^3/uL (0.4-5.4); Lymphocytes % (auto) 8.6 % (10.0-50.0); Mean Corpuscular Hemoglobin 28.4 pg (28.0-32.0); Mean Corpuscular Hgb Conc. 32.7 g/dL (32.0-36.0); Mean Corpuscular Volume 86.6 fL (80.0-100.0); Monocytes # (auto) 0.7 10 ^3/uL (0-1.3); Monocytes % (auto) 7.2 % (0.0-12.0); Neutrophils % (auto) 83.9 % (37.0-80.0); Nucleated Red Blood Cells % 0.1 %; Platelet Count (auto) 230 10^3/uL (140-450); Red Blood Cells 3.94 10^6/uL (4.0-5.20); Red Cell Distribution Width 14.8 % (11.8-14.3); White Blood Cell 9.5 10^3/uL (4.4-10.8)
[2024-07-04 09:03] LABS: Anion Gap 13 (5-15); Calcium 10.1 mg/dL (8.7-10.4); Carbon Dioxide 22 mmol/L (20-31); Chloride 105 mmol/L (98-107); Potassium 4.2 mmol/L (3.5-5.1); Sodium 140 mmol/L (136-145)
[2024-07-04 09:09] LABS: BUN/Creatinine Ratio 17.8 (10.0-20.0); Blood Urea Nitrogen 23 mg/dL (9-23)
[2024-07-04 09:10] LABS: Magnesium 2.1 mg/dL (1.6-2.6)
[2024-07-04 09:11] LABS: Glucose 135 mg/dL (74-106)
[2024-07-04] MEDS: FAMOTIDINE (10MG/ML) 2ML VL IV SCH (09:40)
[2024-07-04] MEDS: SODIUM CHLORIDE 0.9% 1,000 ML IV ONE (09:57)
[2024-07-04] MEDS: ONDANSETRON HCL 4 MG/2 ML VIAL IV PRN (10:00)
[2024-07-04] MEDS: MORPHINE SULFATE INJ 2 MG/ml SYRG IM ONE (10:44)
[2024-07-04 11:00] VITALS: PULSE 95; RESP 20; O2SAT 99
[2024-07-04] MEDS: METOPROLOL TARTRATE 1MG/1ML-5ML VIAL IV ONE (12:45)
[2024-07-04] MEDS: metroNIDAZOLE 500MG/100ML 100 ML IV ONE (13:40)
[2024-07-04] MEDS: metroNIDAZOLE 500MG/100ML 100 ML IV SCH (14:00)
[2024-07-04] MEDS: LORazepam 2MG/ML-1ML VIAL IV SCH (14:26)
[2024-07-04 17:22] VITALS: BP 137/89; PULSE 125; RESP 20; TEMP 97.9; O2SAT 96
--- NOTE | 2024-07-04 17:29 | DVHPNRES ---
Progress Note Date Seen: Jul 04, 2024 Resident Creating Document: LIA PALAFOX RESIDENT Medical Necessity Reason Pt with a Central, PICC or Fol: No Subjective Review of Systems Patient is 34 years old female with past medical history of type 1 diabetes mellitus gastroparesis came with a complaint of abdominal pain and nausea and vomiting. As per patient patient has been having abdominal pain started 2 weeks before, cramping in nature, constant, 10/10 at the beginning now 8/10 which was getting worse. Patient also endorsed nausea and several times vomiting with clear color, no blood. Also endorsed loose motion or several times, no blood. Patient also endorsed having marijuana lately in a get to the republican with Martha which worsened her abdominal pain. Denied any fever, acute joint pain or swelling, dysarthria or change in vision, dysuria. Significant initial lab workup revealed hemoglobin 11.5, BUN 26, serum creatinine 1.41, glucose 332, HGB A1c 9.2, ALT 41, beta hydroxybutyrate 2.42. Urinalysis negative for UTI. Urinalysis revealed ketone body 3+. test negative. UDS tested positive for cannabinoids. CXR no no consolidation noted. CT abdomen- Prominent bulge in the posterior left uterine body is unchanged and likely a fibroid. PMH-diabetes mellitus type 1, gastroparesis PSH- cholecystectomy Allergy- meropenem. Personal History/ Social History- lives with family, smokes marijuana. Patient was seen today at the bedside. Cardiovascular- deny acute chest pain or shortness of breath or cough or palpitation Respiratory denies cough or short of breath or wheezing Musculoskeletal-denies acute joint swelling or tenderness or redness Neurological- denies acute dysarthria, dysphagia, change in vision Psychiatry- denies depression or SI or HI Skin- denies acute rash or purpura Patient was seen today for clinical evaluation. Labs and chart reviewed. Patient still complaining of abdominal pain 8/10, crampy in nature. Patient is on pain meds. Ordered normal saline at 125 mL/hour. Ordered ceftriaxone and and metronidazole. Objective vital signs Vital Sign Date Time Temp Pulse Resp B/P (MAP) Pulse Ox O2 Delivery O2 Flow Rate FiO2 07/04/24 14:12 92 18 164/107 07/04/24 12:01 98.2 99 98.2 07/04/24 11:00 Room Air* 0 21 Total Intake and Output 07/03/24 07/03/24 07/04/24 15:00 23:00 07:00 Intake Total 1000 ml 2000 ml Balance 1000 ml 2000 ml medications Current Medications Medications Dose Ordered Sig/Pio Route Start Time Stop Time Status Last Admin Dose Admin Diagnostic Test (Pha) 1 strip Q6HR 07/04/24 00:00 07/04/24 12:00 1 STRIP Insulin Human Regular Q6HR SC 07/04/24 00:00 07/04/24 14:35 3 UNITS Dextrose 50 ml UD PRN IV 07/03/24 21:00 Metoclopramide HCl 10 mg Q8HR IV 07/04/24 06:00 07/04/24 06:00 10 MG Morphine Sulfate 2 mg Q2HPRN PRN IV 07/04/24 01:00 07/04/24 13:42 2 MG Insulin Glargine 15 units HS SC 07/04/24 22:00 Famotidine 20 mg Q12HR IV 07/04/24 10:00 07/04/24 09:40 20 MG Ondansetron HCl 4 mg Q6HPRN PRN IV 07/04/24 10:00 07/04/24 10:00 4 MG Lorazepam 2 mg Q6HR IV 07/04/24 12:00 07/04/24 14:26 2 MG Ceftriaxone Sodium 50 ml @ 100 mls/hr DAILY@09 IV 07/05/24 09:00 Metronidazole 100 ml @ 100 mls/hr Q8HR IV 07/04/24 14:00 Sodium Chloride 1,000 ml @ 125 mls/hr Q8H IV 07/04/24 12:45 Examination General examination- awake, alert, oriented HEENT- PEERLA, no acute nasal discharge Cardiovascular- S1-S2 audible, rate and rhythm regular, no murmur Respiratory- CTAB, no wheeze or rhonchi Gastrointestinal-abdominal tenderness+, bowel sound+. Nondistended Musculoskeletal-no acute joint swelling or tenderness or redness# Lower extremity- no leg edema Neurological- cranial nerves intact, no acute dysarthria or dysphagia Psychiatry- denies depression or SI or HI Skin- no acute rash or purpura laboratory and microbiology Laboratory Tests 07/04/24 08:34 Test 07/04/24 08:34 Range/Units Serum Glucose 135 H 74-106 mg/dL Problem List/Assessment/Plan Problem List/Assessment/Plan Acute gastroenteritis Acute exertional gastroparesis Suspected Cannabinoids induced nausea and vomiting Uncontrolled diabetes mellitus Dehydration SHADIA likely due to VMN Suspected anxiety Fibroid uterus UDS tested positive for cannabinoids. CXR no no consolidation noted. CT abdomen- Prominent bulge in the posterior left uterine body is unchanged and likely a fibroid. Continue ceftriaxone 1 g IV daily Continue metronidazole 500 mg IV q.8h Insulin sliding scale as prescribed Insulin Lantus 15 units subcutaneously at HS Lorazepam 2 mg IV Q 6 hours Continue pain medication as prescribed Continue normal saline at rate of 125 mL/hour Monitor vitals Maintain intake output chart Outpatient follow up with the Gynecology and Obstetrics for fibroid uterus Goals of care/advance care planning; FULL CODE; discussed with the patient >15 minutes PUD prophylaxis: Famotidine DVT prophylaxis: Patient ambulating Plan discussed with Dr. Chatman , nursing staff, patient Total time spent on patient evaluation, chart review, assessment and plan, discussion discussion >31 minutes Plan discussed with: Patient Plan discussed with: Patient, Other (RN) My Orders My Orders Orders - LIA PALAFOX Procedure Category Date Status Time Famotidine Injection PHA 07/04/24 In Process (Pepcid Injection) 10:00 Ondansetron Hcl PHA 07/04/24 In Process (Zofran) 10:00 Communication Order ORDERS 07/04/24 Transmitted 10:18 Lorazepam 2mg/Ml Inj PHA 07/04/24 In Process (Ativan Inj) 12:00 Ceftriaxone 1gm/50ml PHA 07/05/24 In Process D5w (Rocephin) 09:00 Metronidazole PHA 07/04/24 In Process 500mg/100ml (Flagyl 14:00 Sodium Chloride 0.9% PHA 07/04/24 In Process 12:45 Date of Service: Jul 04, 2024 Billing Provider: RUDY FULLER MD Common Visit Codes: [id number] INP/OBS CARE(HIGH) LIA PALAFOX Jul 04, 2024 17:29 RUDY FULLER MD Jul 08, 2024 00:10
[2024-07-04] MEDS: cefTRIAXone 1GM/50ML D5W 50 ML IV ONE (18:42)
[2024-07-04] MEDS: SODIUM CHLORIDE 0.9% 1,000 ML IV SCH (18:42)
[2024-07-04 20:00] VITALS: PULSE 100; PULSE 92; RESP 18; O2SAT 99
[2024-07-04 21:00] VITALS: BP 147/96; PULSE 100; RESP 16; TEMP 98.8; O2SAT 99
[2024-07-05] VITALS (8 sets, daily range): BP systolic 116–164; BP diastolic 58–96; PULSE 52–120; RESP 17–19; TEMP 97.3–98.9; O2SAT 95–100
[2024-07-05 07:14] LABS: Basophils # (auto) 0 10 ^3/uL (0-0.2); Basophils % (auto) 0.1 % (0.0-2.0); Eosinophils # (auto) 0 10 ^3/uL (0-0.8); Hematocrit 36.7 % (36.0-46.0); Lymphocytes # (auto) 0.5 10 ^3/uL (0.4-5.4); Lymphocytes % (auto) 3.5 % (10.0-50.0); Mean Corpuscular Hemoglobin 28.3 pg (28.0-32.0); Mean Corpuscular Hgb Conc. 32.7 g/dL (32.0-36.0); Mean Corpuscular Volume 86.6 fL (80.0-100.0); Monocytes # (auto) 0.6 10 ^3/uL (0-1.3); Monocytes % (auto) 4.7 % (0.0-12.0); Neutrophils # (auto) 11.9 10 ^3/uL (1.6-8.6); Neutrophils % (auto) 91.7 % (37.0-80.0); Platelet Count (auto) 220 10^3/uL (140-450); Red Blood Cells 4.23 10^6/uL (4.0-5.20); Red Cell Distribution Width 15.1 % (11.8-14.3); White Blood Cell 12.9 10^3/uL (4.4-10.8)
[2024-07-05 07:15] LABS: Alanine Aminotransferase 40 U/L (7-40); Albumin 4.4 g/dL (3.2-4.8); Alkaline Phosphatase 91 U/L (46-116); Anion Gap 15 (5-15); Aspartate Aminotransferase 27 U/L (13-40); BUN/Creatinine Ratio 13.3 (10.0-20.0); Bilirubin, Total 0.5 mg/dL (0.2-1.0); Blood Urea Nitrogen 14 mg/dL (9-23); Calcium 9.8 mg/dL (8.7-10.4); Carbon Dioxide 19 mmol/L (20-31); Chloride 103 mmol/L (98-107); Glucose 197 mg/dL (74-106); Magnesium 1.9 mg/dL (1.6-2.6); Potassium 3.8 mmol/L (3.5-5.1); Sodium 137 mmol/L (136-145); Total Protein 7.5 g/dL (5.7-8.2)
[2024-07-05] MEDS: cefTRIAXone 1GM/50ML D5W 50 ML IV SCH (09:56)
--- NOTE | 2024-07-05 16:20 | DVHPNRES ---
Progress Note Date Seen: Jul 05, 2024 Resident Creating Document: LIA PALAFOX RESIDENT Medical Necessity Reason Pt with a Central, PICC or Fol: No Subjective Review of Systems Patient is 34 years old female with past medical history of type 1 diabetes mellitus gastroparesis came with a complaint of abdominal pain and nausea and vomiting. As per patient patient has been having abdominal pain started 2 weeks before, cramping in nature, constant, 10/10 at the beginning now 8/10 which was getting worse. Patient also endorsed nausea and several times vomiting with clear color, no blood. Also endorsed loose motion or several times, no blood. Patient also endorsed having marijuana lately in a get to the libertarian with Martha which worsened her abdominal pain. Denied any fever, acute joint pain or swelling, dysarthria or change in vision, dysuria. Significant initial lab workup revealed hemoglobin 11.5, BUN 26, serum creatinine 1.41, glucose 332, HGB A1c 9.2, ALT 41, beta hydroxybutyrate 2.42. Urinalysis negative for UTI. Urinalysis revealed ketone body 3+. test negative. UDS tested positive for cannabinoids. CXR no no consolidation noted. CT abdomen- Prominent bulge in the posterior left uterine body is unchanged and likely a fibroid. PMH-diabetes mellitus type 1, gastroparesis PSH- cholecystectomy Allergy- meropenem. Personal History/ Social History- lives with family, smokes marijuana. Patient was seen today at the bedside. Cardiovascular- deny acute chest pain or shortness of breath or cough or palpitation Respiratory denies cough or short of breath or wheezing Musculoskeletal-denies acute joint swelling or tenderness or redness Neurological- denies acute dysarthria, dysphagia, change in vision Psychiatry- denies depression or SI or HI Skin- denies acute rash or purpura Patient was seen today for clinical evaluation. Labs and chart reviewed. Patient reported nausea and vomiting has improved a lot but patient is still having abdominal pain. Abdominal tenderness positive. No fever noted overnight. Ordered clear liquid diet. Discontinued lorazepam and IV fluid. Objective vital signs Vital Sign Date Time Temp Pulse Resp B/P (MAP) Pulse Ox O2 Delivery O2 Flow Rate FiO2 07/05/24 15:30 94 18 155/97 07/05/24 13:00 97.3 99 97.3 07/05/24 08:00 Room Air* 0 21 Total Intake and Output 07/04/24 07/04/24 07/05/24 15:00 23:00 07:00 Intake Total 555 ml 650 ml 1300 ml Balance 555 ml 650 ml 1300 ml medications Current Medications Medications Dose Ordered Sig/Pio Route Start Time Stop Time Status Last Admin Dose Admin Diagnostic Test (Pha) 1 strip Q6HR 07/04/24 00:00 07/05/24 12:04 1 STRIP Insulin Human Regular Q6HR SC 07/04/24 00:00 07/05/24 12:10 3 UNITS Dextrose 50 ml UD PRN IV 07/03/24 21:00 Metoclopramide HCl 10 mg Q8HR IV 07/04/24 06:00 07/05/24 14:48 10 MG Morphine Sulfate 2 mg Q2HPRN PRN IV 07/04/24 01:00 07/05/24 15:00 2 MG Insulin Glargine 15 units HS SC 07/04/24 22:00 07/04/24 22:52 15 UNITS Famotidine 20 mg Q12HR IV 07/04/24 10:00 07/05/24 09:56 20 MG Ondansetron HCl 4 mg Q6HPRN PRN IV 07/04/24 10:00 07/05/24 12:04 4 MG Ceftriaxone Sodium 50 ml @ 100 mls/hr DAILY@09 IV 07/05/24 09:00 07/05/24 09:56 100 MLS/HR Metronidazole 100 ml @ 100 mls/hr Q8HR IV 07/04/24 14:00 07/05/24 14:47 100 MLS/HR Examination General examination- awake, alert, oriented HEENT- PEERLA, no acute nasal discharge Cardiovascular- S1-S2 audible, rate and rhythm regular, no murmur Respiratory- CTAB, no wheeze or rhonchi Gastrointestinal-abdominal tenderness+, bowel sound+. Nondistended Musculoskeletal-no acute joint swelling or tenderness or redness# Lower extremity- no leg edema Neurological- cranial nerves intact, no acute dysarthria or dysphagia Psychiatry- denies depression or SI or HI Skin- no acute rash or purpura laboratory and microbiology Laboratory Tests 07/05/24 05:21 Test 07/05/24 05:21 Range/Units Serum Glucose 197 H 74-106 mg/dL Microbiology Date/Time Source Procedure Growth Status 07/03/24 23:30 Voided Urine Urine Culture - Preliminary Resulted Problem List/Assessment/Plan Problem List/Assessment/Plan Acute gastroenteritis Acute exertional gastroparesis Suspected Cannabinoids induced intractable nausea and vomiting Suspected lactic acidosis likely due to dehydration Uncontrolled diabetes mellitus Dehydration SHADIA likely due to VMN Suspected anxiety Fibroid uterus UDS tested positive for cannabinoids. CXR no no consolidation noted. CT abdomen- Prominent bulge in the posterior left uterine body is unchanged and likely a fibroid. Continue ceftriaxone 1 g IV daily Continue metronidazole 500 mg IV q.8h Insulin sliding scale as prescribed Insulin Lantus 15 units subcutaneously at HS Continue pain medication as prescribed Monitor vitals Maintain intake output chart Outpatient follow up with the Gynecology and Obstetrics for fibroid uterus Discontinued IV fluid Discontinue lorazepam Goals of care/advance care planning; FULL CODE; discussed with the patient >15 minutes PUD prophylaxis: Famotidine DVT prophylaxis: Patient ambulating Plan discussed with Dr. Chatman , nursing staff, patient Total time spent on patient evaluation, chart review, assessment and plan, discussion discussion >31 minutes Plan discussed with: Patient Plan discussed with: Patient, Other (RN) My Orders My Orders Orders - LIA PALAFOX Procedure Category Date Status Time Initiate Vte SEYMOUR 07/05/24 In Process Prophylaxis 00:17 Clear Liq Diet DIET 07/05/24 Transmitted Lunch Date of Service: Jul 05, 2024 Billing Provider: RUDY FULLER MD Common Visit Codes: [id number] INP/OBS CARE(HIGH) LIA PALAFOX Jul 05, 2024 16:20 RUDY FULLER MD Jul 08, 2024 00:16
[2024-07-06] VITALS (7 sets, daily range): BP systolic 107–170; BP diastolic 64–96; PULSE 95–108; RESP 17–19; TEMP 97.6–98.7; O2SAT 96–99
[2024-07-06] MEDS: SODIUM CHLORIDE 0.9% 1,000 ML IV ONE (10:15)
[2024-07-06 11:05] LABS: Basophils # (auto) 0 10 ^3/uL (0-0.2); Basophils % (auto) 0.1 % (0.0-2.0); Eosinophils # (auto) 0 10 ^3/uL (0-0.8); Hematocrit 36.8 % (36.0-46.0); Lymphocytes # (auto) 0.7 10 ^3/uL (0.4-5.4); Lymphocytes % (auto) 6.6 % (10.0-50.0); Mean Corpuscular Hemoglobin 28.3 pg (28.0-32.0); Mean Corpuscular Hgb Conc. 32.6 g/dL (32.0-36.0); Mean Corpuscular Volume 86.9 fL (80.0-100.0); Monocytes # (auto) 0.5 10 ^3/uL (0-1.3); Monocytes % (auto) 4.3 % (0.0-12.0); Neutrophils # (auto) 9.8 10 ^3/uL (1.6-8.6); Platelet Count (auto) 256 10^3/uL (140-450); Red Blood Cells 4.23 10^6/uL (4.0-5.20); Red Cell Distribution Width 14.8 % (11.8-14.3)
[2024-07-06 11:13] LABS: Chloride 99 mmol/L (98-107); Potassium 3.6 mmol/L (3.5-5.1)
[2024-07-06 11:14] LABS: Anion Gap 16 (5-15)
[2024-07-06 11:15] LABS: Calcium 10.1 mg/dL (8.7-10.4)
[2024-07-06 11:19] LABS: BUN/Creatinine Ratio 10.1 (10.0-20.0); Blood Urea Nitrogen 11 mg/dL (9-23)
[2024-07-06 11:24] LABS: Carbon Dioxide 16 mmol/L (20-31); Glucose 150 mg/dL (74-106); Sodium 131 mmol/L (136-145)
--- NOTE | 2024-07-06 13:20 | DVHDSRES ---
Discharge Summary Date of Admission Resident Creating Document: LIA PALAFOX Jul 03, 2024 at 20:33 Date of Discharge: Jul 06, 2024 Admitting Diagnosis Suspected acute gastroenteritis Labs/Diagnostic Data: Laboratory Results Test 07/06/24 12:14 07/06/24 10:32 07/05/24 05:21 07/04/24 19:15 POC Glucose 166 mg/dl (70-106) White Blood Count 11.0 10^3/uL (4.4-10.8) Red Blood Count 4.23 10^6/uL (4.0-5.20) Hemoglobin 12.0 g/dL (12.2-16.2) Hematocrit 36.8 % (36.0-46.0) Mean Corpuscular Volume 86.9 fL (80.0-100.0) Mean Corpuscular Hemoglobin 28.3 pg (28.0-32.0) Mean Corpuscular Hemoglobin Concent 32.6 g/dL (32.0-36.0) Red Cell Distribution Width 14.8 % (11.8-14.3) Platelet Count 256 10^3/uL (140-450) Mean Platelet Volume 10.1 fL (6.9-10.8) Neutrophils (%) (Auto) 89.0 % (37.0-80.0) Lymphocytes (%) (Auto) 6.6 % (10.0-50.0) Monocytes (%) (Auto) 4.3 % (0.0-12.0) Eosinophils (%) (Auto) 0.0 % (0.0-7.0) Basophils (%) (Auto) 0.1 % (0.0-2.0) Neutrophils # (Auto) 9.8 10 ^3/uL (1.6-8.6) Lymphocytes # (Auto) 0.7 10 ^3/uL (0.4-5.4) Monocytes # (Auto) 0.5 10 ^3/uL (0-1.3) Eosinophils # (Auto) 0 10 ^3/uL (0-0.8) Basophils # (Auto) 0 10 ^3/uL (0-0.2) Nucleated Red Blood Cells 0.0 % Sodium Level 131 mmol/L (136-145) Potassium Level 3.6 mmol/L (3.5-5.1) Chloride Level 99 mmol/L (98-107) Carbon Dioxide Level 16 mmol/L (20-31) Anion Gap 16 (5-15) Blood Urea Nitrogen 11 mg/dL (9-23) Creatinine 1.09 mg/dL (0.550-1.02) Glomerular Filtration Rate Calc 68 mL/min (>90) BUN/Creatinine Ratio 10.1 (10.0-20.0) Serum Glucose 150 mg/dL (74-106) Calcium Level 10.1 mg/dL (8.7-10.4) Magnesium Level 1.9 mg/dL (1.6-2.6) Total Bilirubin 0.5 mg/dL (0.2-1.0) Aspartate Amino Transferase (AST) 27 U/L (13-40) Alanine Aminotransferase (ALT) 40 U/L (7-40) Alkaline Phosphatase 91 U/L (46-116) Total Protein 7.5 g/dL (5.7-8.2) Albumin 4.4 g/dL (3.2-4.8) Lactic Acid Level 1.1 mmol/L (0.4-2.0) Test 07/03/24 23:00 07/03/24 17:54 Urine Color Colorless (Yellow) Urine Clarity Clear (Clear) Urine pH 6.5 (5.0-9.0) Urine Specific [place] 1.017 (1.001-1.035) Urine Protein Negative (Negative) Urine Ketones 3+ (Negative) Urine Blood Negative /uL (Negative) Urine Nitrite Negative (Negative) Urine Bilirubin Negative (Negative) Urine Urobilinogen Normal mg/dL (Negative) Urine Leukocyte Esterase Negative /uL (Negative) Urine RBC 1 /hpf (0 - 4) Urine Microscopic WBC < 1 /HPF (0-5) Urine Squamous Epithelial Cells Few /hpf (<5) Urine Bacteria None seen /hpf (None Seen) Urine Glucose 4+ mg/dL (Normal) Urine Test Negative (Negative) Urine Opiates Screen Neg (NEGATIVE) Urine Fentanyl Screen Neg (NEGATIVE) Urine Barbiturates Screen Neg (NEGATIVE) Urine Phencyclidine Screen Neg (NEGATIVE) Urine Amphetamines Screen Neg (NEGATIVE) Urine Benzodiazepines Screen Neg (NEGATIVE) Urine Cocaine Screen Neg (NEGATIVE) Urine Cannabinoids Screen Pos (NEGATIVE) Hemoglobin A1c 9.2 % A1C (<5.7) Lipase 34 U/L (12-53) Beta-Hydroxybutyric Acid 2.429 mmol/L (< 0.4) Thyroid Stimulating Hormone (TSH) 0.93 uIU/mL (0.55-4.78) Other Laboratory Tests 07/06/24 10:32 Brief Hx & Hospital Course: HPI-Patient is 34 years old female with past medical history of type 1 diabetes mellitus gastroparesis came with a complaint of abdominal pain and nausea and vomiting. As per patient patient has been having abdominal pain started 2 weeks before, cramping in nature, constant, 10/10 at the beginning now 8/10 which was getting worse. Patient also endorsed nausea and several times vomiting with clear color, no blood. Also endorsed loose motion or several times, no blood. Patient also endorsed having marijuana lately in a get to the [employer] party with Brownie which worsened her abdominal pain. Denied any fever, acute joint pain or swelling, dysarthria or change in vision, dysuria. Significant initial lab workup revealed hemoglobin 11.5, BUN 26, serum creatinine 1.41, glucose 332, HGB A1c 9.2, ALT 41, beta hydroxybutyrate 2.42. Urinalysis negative for UTI. Urinalysis revealed ketone body 3+. test negative. UDS tested positive for cannabinoids. CXR no no consolidation noted. CT abdomen- Prominent bulge in the posterior left uterine body is unchanged and likely a fibroid. Hospital course-patient came to the hospital for intractable abdominal pain. Patient was admitted to the hospital due to acute gastroenteritis and suspected cannabinoids induced intractable nausea and vomiting. Patient was treated conservatively. Patient's symptoms gradually got better. Patient was tolerating liquid diet well. Patient was advised to continue liquid diet for 1- 2 weeks. Patient was discharged with Zofran 4 mg every 6 hours as needed. Patient was advised to follow up with the primary care physician in 1 week. Patient's meds were sent to the pharmacy electronically. Patient was hemodynamically stable on discharge. Patient was counseled about the effect of substance abuse on health. Patient has verbalized understanding. Diagnosis Acute gastroenteritis likely viral Acute exertional gastroparesis Suspected Cannabinoids induced intractable nausea and vomiting Suspected lactic acidosis likely due to dehydration Uncontrolled diabetes mellitus Dehydration SHADIA likely due to VMN Suspected anxiety Anxiety induced Tachycardia Psychogenic Hyperventilation and tachypnea Fibroid uterus Discharge plan- Continuing liquid diet for 1-2 week [id number] pain management Please resume insulin lispro and Lantus as used to take Zofran 4 mg p.o. every 6 hours as needed Patient was advised to follow up with the primary care physician in 1 week Patient is counseled about the effect of substance abuse on health Patient was counseled about the importance of med compliance Condition at Discharge: Stable Final Diagnosis/Problems List Acute gastroenteritis likely viral Acute exertional gastroparesis Suspected Cannabinoids induced intractable nausea and vomiting Suspected lactic acidosis likely due to dehydration Uncontrolled diabetes mellitus Dehydration SHADIA likely due to VMN-resolved anxiety Anxiety induced Tachycardia Psychogenic Hyperventilation and tachypnea Fibroid uterus Discharge Disposition: Home Discharge Instruct/Medications Follow Up/Referral: Please resume insulin lispro and Lantus as used to take Zofran 4 mg p.o. every 6 hours as needed Patient was advised to follow up with the primary care physician in 1 week Patient is counseled about the effect of substance abuse on health Patient was counseled about the importance of med compliance Medications: [id number] pain management Please resume insulin lispro and Lantus as used to take Zofran 4 mg p.o. every 6 hours as needed Patient was advised to follow up with the primary care physician in 1 week Patient is counseled about the effect of substance abuse on health Patient was counseled about the importance of med compliance Discharge Statement: "Patient was advised to return to the ER or call 911 if any headaches, dizziness, shortness of breath, chest pain, abdominal pain, bleeding, fevers, or worsening of medical condition. Patient was counseled about treatment plan, medications, possible side effects, patientverbalized understanding. All questions were answered to the best of my ability. This discharge took greater then 30 minutes in planning, reviewing documentation, counseling the patient, and discussing with other team members." ASSESSMENT ASSESSMENT Assessment Date of Service: Jul 06, 2024 Billing Provider: RUDY FULLER MD Common Visit Codes: [id number]/OBS DISCH DAY >30min LIA PALAFOX Jul 06, 2024 13:20 RUDY FULLER MD Jul 08, 2024 00:38
[2024-07-06] MEDS ORDERED: ZOFR4T PO (14:18)
== END 2024-07-06 15:40 | disposition home or self-care (01) | DRG 48 ==
LOC: ER 16:54 → OVERFLOW 20:33 → TELE-WESTW 07-04 12:30 → WEST WING 07-05 23:40
PROVIDERS: ADMIT Student in an Organized Health Care Education/Training Program; ATTEND Student in an Organized Health Care Education/Training Program
DX: E10.43 Type 1 diabetes mellitus with diabetic autonomic (poly)neuropathy (principal); N17.0 Acute kidney failure with tubular necrosis; E87.20 Acidosis, unspecified; A08.4 Viral intestinal infection, unspecified; E86.0 Dehydration; K31.84 Gastroparesis; D25.9 Leiomyoma of uterus, unspecified; F45.8 Other somatoform disorders; F41.9 Anxiety disorder, unspecified; F12.99 Cannabis use, unspecified with unspecified cannabis-induced disorder; Z83.3 Family history of diabetes mellitus; Z90.49 Acquired absence of other specified parts of digestive tract; Z79.899 Other long term (current) drug therapy; Z79.4 Long term (current) use of insulin; Z88.8 Allergy status to other drugs, medicaments and biological substances
CPT/HCPCS: 36415; 71045; 74176; 80048; 80053; 80307; 81001; 81025; 82010; 82962; 83036; 83605; 83690; 83735; 84443; 85025; 87086; 96361; 96374; 96375; G0378; J1815; J2405; J2470; J3490